=== PATIENT | male | born 1960 | race Caucasian/White ===

== ENCOUNTER → 2017-11-21 | Outpatient (CLI) | payer OTHER | LOC: FIMAGING 07:01 | DX: S83.511A Sprain of anterior cruciate ligament of right knee, initial encounter (principal); S83.231A Complex tear of medial meniscus, current injury, right knee, initial encounter; M24.10 Other articular cartilage disorders, unspecified site; M25.461 Effusion, right knee; M71.21 Synovial cyst of popliteal space [Baker], right knee; Y93.23 Activity, snow (alpine) (downhill) skiing, snowboarding, sledding, tobogganing and snow tubing ==

== ENCOUNTER 2017-12-29 14:50 | Emergency (ER) | payer OTHER ==
[2017-12-29 15:01] VITALS: BP 122/78; PULSE 67; RESP 16; TEMP 98.2; O2SAT 93
--- NOTE | 2017-12-29 15:15 | EDPHY ---
H & P Stated Complaint: right leg sweeling/pain ACL repair 12/22 Time Seen by Provider: 12/29/17 15:11 HPI/ROS: HPI: This is a 57-year-old male who presents with Chief Complaint: Right leg swelling Location: Right calf Quality: Swelling Duration: 2 days Signs and Symptoms: No bleeding, no radiation, no numbness, no weakness, no tingling, no incontinence, no decreased range of motion, + swelling, + pain, no fever Timing: Gradually worsening Severity: [id number] Context: Patient had ACL surgery performed on 12/18/2017 by an orthopedist at [facility]. Was seen Sunday for follow-up. At that time he let his orthopedist noted that he had a history of DVT in that leg approximately 10 years ago status post ankle surgery. The orthopedist started him on Xarelto 10 mg daily for the next 21 days for DVT prophylaxis. Patient reports that over the last 2 days he has had increased right calf swelling to the point that it is twice the size of his left calf with mild; aching pain. Ambulatory without deficits. Denies any fever/shortness of breath/chest pain/palpitation/ paresthesias. Modifying Factors: Xarelto Comment: ROS: see HPI Constitutional: No fever, no chills, no weight loss Eyes: No blurred vision Respiratory: No shortness of breath, no cough Cardiovascular: No chest pain Gastrointestinal: No nausea, no vomiting no diarrhea Genitourinary: No dysuria Extremities: No myalgias Neurologic: No weakness, no numbness Skin: No rashes Hematologic: No bruising, no bleeding MEDICAL/SURGICAL/SOCIAL HISTORY: Medical history: Generally healthy. Does not take any regular medications. Surgical history: Right ACL arthroscopy Social history: Employed. CONSTITUTIONAL: Very pleasant adult male, wears glasses, awake and alert, no obvious distress PULMONARY/CHEST: Symmetrical and nontender. no crepitus. Clear to auscultation bilaterally. Good air movement. No accessory muscle usage. ABDOMEN: Soft, nondistended, nontender, no ecchymosis. EXTREMITIES: 2/2 pulses, strength 5/5, right KNEE: Steri-Strips over portal holes from arthroscopy; no erythema; no effusion, no medial and lateral joint line tenderness, full extension to 180, flexion to 120. No pain with varus and valgus exam. No pain with anterior drawer or posterior drawer test. DIP/PIP /MCP flexion/extension intact with good light touch sensation. no deformities, no clubbing, no cyanosis or edema. Right calf is twice the size of the left calf. Mild discomfort noted with palpation. No palpable cords. No varicosities. Ecchymosis noted in the anterior dyson. NEUROLOGICAL: no focal neuro deficits. GCS 15. Light touch sensation intact. SKIN: Warm and dry, no erythema. no rash. Good capillary refill. Source: Patient Exam Limitations: No limitations - Personal History Current Tetanus Diphtheria and Acellular Pertussis (TDAP): Yes - Medical/Surgical History Hx Asthma: No Hx Chronic Respiratory Disease: No Hx Diabetes: No Hx Cardiac Disease: No Hx Renal Disease: No Hx Cirrhosis: No Hx Alcoholism: No Hx HIV/AIDS: No Hx Splenectomy or Spleen Trauma: No Other PMH: acl repair - Social History Smoking Status: Former smoker Constitutional: Initial Vital Signs Temperature (C) 36.8 C 12/29/17 14:57 Heart Rate 67 12/29/17 14:57 Respiratory Rate 16 12/29/17 14:57 Blood Pressure 122/78 H 12/29/17 14:57 O2 Sat (%) 93 12/29/17 14:57 O2 Delivery Mode Room Air Allergies/Adverse Reactions: No Known Allergies Allergy (Unverified 12/29/17 15:01) Home Medications: Medication Instructions Recorded Cyclobenzaprine [Flexeril 10 MG 12/29/17 (*)] Oxycontin 12/29/17 Xarelto 12/29/17 Medical Decision Making - Diagnostics Imaging Results: Imaging Impressions Extremity Venous Study 12/29/17 15:11 Impression: 1. No evidence of deep vein thrombosis in the right lower extremity. 2. Long Parker's cyst, possibly filled with hemorrhage. Results discussed with Jory Nicholson at 4:05 PM. ED Course/Re-evaluation: Right lower extremity ultrasound ordered No hypoxia/tachycardia. Called by radiologist who reports that right lower extremity ultrasound shows no signs of DVT but does show a Parker cyst approximately 8 cm in size Advised the patient to continue orthopedic follow-up protocol as well as Xarelto. This patient was seen under the supervision of my secondary supervising physician. I evaluated care for this patient independently. Discussed this patient with Dr. Liriano who did not see the patient. Differential Diagnosis: Leg swelling including but not limited to hypoalbuminemia, congestive heart failure, cor pulmonale, chronic venous stasis and DVT. Departure - Departure Disposition: Home, Routine, Self-Care Clinical Impression: Synovial cyst of popliteal space [Parker], right knee, Status post anterior cruciate ligament surgery Condition: Good Instructions: Bakers Cyst (ED) Additional Instructions: Continue taking Xarelto as directed per Orthopedics. Keep follow-up appointment with Orthopedics. RICE therapy. Return to the ER immediately if you experience new or worsening pain, discoloration, numbness, tingling, or any other symptoms that concern you. Referrals: PCP Not In,Dictionary [Medical Doctor] - As per Instructions
== END 2017-12-29 16:15 | disposition home or self-care (01) ==
DX: M71.21 Synovial cyst of popliteal space [Baker], right knee (principal); Z87.891 Personal history of nicotine dependence; Z98.890 Other specified postprocedural states